=== PATIENT | male | born 1965 | race African-American/Black ===

== ENCOUNTER 2021-03-05 13:39 | Inpatient (IN) | payer MEDICAID, OTHER ==
[~2021-03-05] VITALS: Ht 172.7 cm; Wt 68.0 kg
[2021-03-05] MEDS ORDERED: PANTOPRAZOLE SODIUM 40 MG/VIAL IV STA (14:06)
[2021-03-05] MEDS ORDERED: PANTOPRAZOLE 80 MG in SODIUM CHLORIDE 0.9% 100 ML IV STA (14:06)
[2021-03-05] MEDS ORDERED: SODIUM CHLORIDE 0.9% 1,000 ML IV ONE (14:15)
[2021-03-05 14:41] LABS: CHLORIDE 101 mEq/L (98-107); HEMOGLOBIN. 13.1 g/dL (14.0-18.0); MEAN CORPUSCULAR VOLUME 81.4 fL (80.0-94.0); MEAN PLATELET VOLUME 7.8 fl (7.4-10.4); PLATELET 336 x1000/uL (130-400); RED BLOOD CELL COUNT 5.03 mill/uL (4.7-6.1); RED CELL DISTRIBUTION WIDTH 16.9 % (11.6-14.6)
[2021-03-05 14:45] LABS: INR 1.1; PARTIAL THROMBOPLASTIN TIME 26.1 sec (23.4-31.0); PROTHROMBIN TIME 11.4 sec (9.6-11.0)
[2021-03-05] MEDS ORDERED: PIPERACILLIN/TAZ 3.375G PREMIX 50 ML IV ONE (15:00)
[2021-03-05] MEDS ORDERED: VANCOMYCIN 1 G PREMIX 200 ML IV ONE (15:00)
[2021-03-05 15:53] LABS: PLATELET ESTIMATE NORMAL
[2021-03-05] MEDS ORDERED: ALBUTEROL (0.083%) 2.5MG/3ML NEB HHN ONE (17:00)
[2021-03-05] MEDS ORDERED: SODIUM BICARBONATE 8.4% 1 MEQ/ML 50ML SYR IV ONE (17:00)
[2021-03-06 01:18] LABS: CLARITY URINE CLOUDY (CLEAR); COLOR URINE DARK YELLOW (YELLOW); KETONES URINE TRACE (NEGATIVE); LEUKOCYTE ESTERASE URINE NEGATIVE (NEGATIVE); NITRITE URINE NEGATIVE (NEGATIVE); OCCULT BLOOD URINE NEGATIVE (NEGATIVE); PROTEIN URINE TRACE (NEGATIVE); SPECIFIC GRAVITY URINE 1.018 (1.005-1.030)
[2021-03-06 06:42] VITALS: BP 102/75
[2021-03-06 08:00] VITALS: BP 90/64
[2021-03-06] MEDS ORDERED: IPRATROPIUM/ALBUTEROL 0.5-3(2.5)MG/3ML NEB HHN PRN (08:45)
[2021-03-06] MEDS ORDERED: CLONIDINE 0.1MG TABLET PO PRN (08:45)
[2021-03-06] MEDS ORDERED: MORPHINE SULFATE 2 MG/ML CPJ (NOT FOR IM USE) IV PRN (08:45)
[2021-03-06] MEDS ORDERED: DIPHENHYDRAMINE 50MG/ML VIAL IV PRN (08:45)
[2021-03-06] MEDS ORDERED: NALOXONE HCL 0.4MG/ML VIAL IV PRN (08:45)
[2021-03-06] MEDS ORDERED: ONDA4TAB5 PO (08:48)
[2021-03-06] MEDS ORDERED: SPIR100T5 PO (08:48)
[2021-03-06] MEDS ORDERED: BACL20TA PO (08:48)
[2021-03-06] MEDS ORDERED: LEVE500T19 PO (08:48)
[2021-03-06] MEDS ORDERED: DEXA4TAB PO (08:48)
[2021-03-06] MEDS ORDERED: FURO20TA4 PO (08:48)
[2021-03-06] MEDS: SODIUM CHLORIDE 0.9% 1,000 ML IV SCH (10:30)
[2021-03-06] MEDS: PANTOPRAZOLE SODIUM 40 MG/VIAL IV SCH (10:30)
[2021-03-06] MEDS ORDERED: PIPERACILLIN/TAZOBACTAM 3.375 G in DEXTROSE 5% WATER 50 ML IV NR (10:30)
[2021-03-06 10:34] LABS: HEMATOCRIT. 37.5 % (42.0-52.0); HEMOGLOBIN. 12.1 g/dL (14.0-18.0); MEAN CORPUSCULAR HEMOGLOBIN 26.3 pg (28.0-32.0); MEAN CORPUSCULAR VOLUME 81.3 fL (80.0-94.0); MEAN PLATELET VOLUME 8.5 fl (7.4-10.4); PLATELET 289 x1000/uL (130-400); RED BLOOD CELL COUNT 4.61 mill/uL (4.7-6.1)
[2021-03-06] MEDS ORDERED: VANCOMYCIN 500 MG PREMIX 100 ML IV NR (12:00)
[2021-03-06] MEDS: PIPERACILLIN/TAZOBACTAM 3.375 G in DEXTROSE 5% WATER 50 ML IV SCH ×2 (13:28→21:19)
[2021-03-06 16:00] VITALS: BP 108/80
[2021-03-06 18:12] LABS: PLATELET ESTIMATE NORMAL
[2021-03-06 20:00] VITALS: BP 101/75
[2021-03-07] VITALS: BP 99/68
[2021-03-07] MEDS: SODIUM CHLORIDE 0.9% 1,000 ML IV SCH ×3 (03:27→19:56)
[2021-03-07 04:00] VITALS: BP 110/70
[2021-03-07] MEDS: PIPERACILLIN/TAZOBACTAM 3.375 G in DEXTROSE 5% WATER 50 ML IV SCH (05:40)
[2021-03-07 07:25] LABS: HEMATOCRIT. 33.3 % (42.0-52.0); HEMOGLOBIN. 10.8 g/dL (14.0-18.0); MEAN CORPUSCULAR HEMOGLOBIN 26.5 pg (28.0-32.0); MEAN CORPUSCULAR VOLUME 81.4 fL (80.0-94.0); PLATELET 299 x1000/uL (130-400); RED BLOOD CELL COUNT 4.09 mill/uL (4.7-6.1); RED CELL DISTRIBUTION WIDTH 17.1 % (11.6-14.6)
[2021-03-07 07:33] LABS: PROTHROMBIN TIME 10.9 sec (9.6-11.0)
[2021-03-07 07:41] LABS: CHLORIDE 109 mEq/L (98-107)
[2021-03-07 07:50] LABS: PHOSPHORUS 3.8 mg/dL (2.5-4.9)
[2021-03-07 07:51] LABS: LDL CHOLESTEROL 54 mg/dL (5-100); TOTAL IRON BINDING CAPACITY 172 ug/dL (250-450)
[2021-03-07 07:53] LABS: HDL CHOLESTEROL 49 mg/dL (40-59)
[2021-03-07 08:00] VITALS: BP 94/66
[2021-03-07 08:12] LABS: VITAMIN B12 SERUM > 2000.0 pg/mL (211-911)
[2021-03-07 08:49] LABS: FERRITIN 638 ng/mL (22-322)
[2021-03-07] MEDS ORDERED: SODIUM BICARBONATE 4% (2.4MEQ) 5ML VIAL IV ONE (08:54)
[2021-03-07] MEDS ORDERED: LIDOCAINE HCL 1% 10 MG/ML 10ML VIAL ONE (08:54)
[2021-03-07 09:00] LABS: HEPATITIS B SURFACE ANTIGEN NEGATIVE
[2021-03-07] MEDS: VANCOMYCIN 1 G PREMIX 200 ML IV SCH (10:37)
[2021-03-07] MEDS: PANTOPRAZOLE SODIUM 40 MG/VIAL IV SCH (10:37)
[2021-03-07 12:00] VITALS: BP 78/52
[2021-03-07] MEDS ORDERED: ALBUMIN HUMAN 12.5GM/50ML (25%) IV ONE (13:00)
[2021-03-07] MEDS: THIAMINE HCL 100MG TABLET PO SCH (14:51)
[2021-03-07] MEDS: MULTIVITAMINS,THER W-MINERALS TABLET PO SCH (14:51)
[2021-03-07] MEDS ORDERED: ALBUMIN HUMAN 25GM/100ML (25%) IV NR (15:00)
[2021-03-07 15:13] LABS: PLATELET ESTIMATE NORMAL
[2021-03-07] MEDS: PIPERACILLIN/TAZOBACTAM 3.375G in DEXT 5% WATER 50ML IV SCH ×2 (15:58→22:25)
[2021-03-07 16:00] VITALS: BP 86/52
[2021-03-07] MEDS ORDERED: SODIUM CHLORIDE 0.9% 500 ML IV ONE (17:30)
[2021-03-07] MEDS: FAMOTIDINE 20MG TABLET PO SCH (18:14)
[2021-03-07 20:00] VITALS: BP 95/57
[2021-03-08] VITALS: BP 97/61
[2021-03-08] MEDS: VANCOMYCIN 1 G PREMIX 200 ML IV SCH (03:44)
[2021-03-08 04:00] VITALS: BP 104/63
[2021-03-08] MEDS: PIPERACILLIN/TAZOBACTAM 3.375G in DEXT 5% WATER 50ML IV SCH (05:40)
[2021-03-08 06:22] LABS: CHLORIDE 105 mEq/L (98-107)
[2021-03-08 06:30] LABS: PHOSPHORUS 2.4 mg/dL (2.5-4.9)
[2021-03-08 06:50] LABS: HEMATOCRIT. 34.1 % (42.0-52.0); HEMOGLOBIN. 11.2 g/dL (14.0-18.0); MEAN CORPUSCULAR HEMOGLOBIN 26.9 pg (28.0-32.0); MEAN CORPUSCULAR VOLUME 81.9 fL (80.0-94.0); MEAN PLATELET VOLUME 8.8 fl (7.4-10.4); PLATELET 277 x1000/uL (130-400); RED BLOOD CELL COUNT 4.16 mill/uL (4.7-6.1); RED CELL DISTRIBUTION WIDTH 17.1 % (11.6-14.6)
[2021-03-08 08:00] VITALS: BP 100/69
[2021-03-08] MEDS ORDERED: VANCOMYCIN 500 MG PREMIX 100 ML IV SCH (08:00)
[2021-03-08] MEDS: THIAMINE HCL 100MG TABLET PO SCH (08:16)
[2021-03-08] MEDS: MULTIVITAMINS,THER W-MINERALS TABLET PO SCH (08:16)
[2021-03-08] MEDS: PANTOPRAZOLE SODIUM 40 MG/VIAL IV SCH (08:16)
[2021-03-08] MEDS: FAMOTIDINE 20MG TABLET PO SCH (08:16)
[2021-03-08 12:00] VITALS: BP 99/68
[2021-03-08] MEDS ORDERED: POTASSIUM PHOS,M-BASIC-D-BASIC 15 MMOL in DEXT 5% WATER 245 ML IV SCH (12:00)
[2021-03-08 12:26] LABS: PLATELET ESTIMATE NORMAL
[2021-03-08] MEDS: SODIUM CHLORIDE 0.9% 1,000 ML IV SCH (14:09)
[2021-03-08] MEDS ORDERED: MAGNESIUM/ALUMINUM HYDROXIDE/SIMETHICONE 30ML UDC PO PRN (15:30)
[2021-03-08 16:00] VITALS: BP 100/71
[2021-03-08] MEDS ORDERED: VANCOMYCIN 750 MG PREMIX 150 ML IV SCH (18:00)
[2021-03-08 20:00] VITALS: BP 90/58
[2021-03-09] VITALS: BP 98/68
[2021-03-09] MEDS: IPRATROPIUM/ALBUTEROL 0.5-3(2.5)MG/3ML NEB HHN SCH ×4 (01:25→15:25)
[2021-03-09 04:00] VITALS: BP 92/61
[2021-03-09 06:42] LABS: CHLORIDE 106 mEq/L (98-107)
[2021-03-09 06:51] LABS: HEMOGLOBIN. 11.9 g/dL (14.0-18.0); MEAN PLATELET VOLUME 8.4 fl (7.4-10.4); PLATELET 250 x1000/uL (130-400); RED CELL DISTRIBUTION WIDTH 17.2 % (11.6-14.6)
[2021-03-09 06:59] LABS: PHOSPHORUS 2.2 mg/dL (2.5-4.9)
[2021-03-09 08:00] VITALS: BP 99/65
[2021-03-09] MEDS: MULTIVITAMINS,THER W-MINERALS TABLET PO SCH (08:25)
[2021-03-09] MEDS: PANTOPRAZOLE SODIUM 40 MG/VIAL IV SCH (08:26)
[2021-03-09] MEDS: FAMOTIDINE 20MG TABLET PO SCH (08:26)
[2021-03-09] MEDS: THIAMINE HCL 100MG TABLET PO SCH (08:26)
[2021-03-09] MEDS ORDERED: MEGESTROL ACETATE 400 MG/10 ML UDC PO SCH (09:00)
[2021-03-09 09:36] LABS: PLATELET ESTIMATE NORMAL
[2021-03-09] MEDS ORDERED: POLYETHYLENE GLYCOL 3350 (17GM) 1 DOSE PACK PO PRN (11:45)
[2021-03-09 12:00] VITALS: BP 100/52
[2021-03-09] MEDS: CEFEPIME 2,000 MG in DEXT 5% WATER 100 ML IV SCH (13:39)
[2021-03-09 16:00] VITALS: BP 102/57
[2021-03-09] MEDS: POTASSIUM-SODIUM PHOSPHATE POWDER PACKET PO SCH (17:04)
[2021-03-09] MEDS: SODIUM CHLORIDE 0.9% 1,000 ML IV SCH (17:05)
[2021-03-09 20:00] VITALS: BP 99/60
[2021-03-10] VITALS: BP 118/70
[2021-03-10 01:43] LABS: BG BASE EXCESS 0.6 mmol/L (-2.0-2.0); BG CARBOXYHEMOGLOBIN 0.2 % (0.5-1.5); BG DEOXYHEMOGLOBIN 9.9 % (0.0-5.0); BG FRACTION INSPIRED OXYGEN 44; BG HCO3 ACT 24.8 mmol/L (22.0-26.0); BG METHEMOGLOBIN 0.4 % (0.0-1.5); BG OXYHEMOGLOBIN 89.5 % (94.0-97.0); BG PCO2 38.5 mmHg (35.0-45.0); BG PH 7.427 (7.350-7.450); BG PO2 57.5 mmHg (75.0-100.0); BG SAMPLE SITE RIGHT RADIAL; BG TOTAL HEMOGLOBIN 12.8 g/dL (12.0-18.0); BG VENT MODE NASAL CANNULA
[2021-03-10] MEDS: CEFEPIME 2,000 MG in DEXT 5% WATER 100 ML IV SCH ×2 (02:31→17:44)
[2021-03-10 04:00] VITALS: BP 100/77
[2021-03-10] MEDS: SODIUM CHLORIDE 0.9% 1,000 ML IV SCH (06:02)
[2021-03-10 07:58] LABS: HEMATOCRIT. 38.3 % (42.0-52.0); HEMOGLOBIN. 11.8 g/dL (14.0-18.0); MEAN CORPUSCULAR HEMOGLOBIN 26.2 pg (28.0-32.0); MEAN CORPUSCULAR VOLUME 85.2 fL (80.0-94.0); PLATELET 232 x1000/uL (130-400); RED CELL DISTRIBUTION WIDTH 17.4 % (11.6-14.6)
[2021-03-10 08:00] VITALS: BP 100/65
[2021-03-10 08:17] LABS: CHLORIDE 106 mEq/L (98-107)
[2021-03-10 08:24] LABS: PHOSPHORUS 2.9 mg/dL (2.5-4.9)
[2021-03-10] MEDS: HYDROCODONE/ACETAMINOPHEN 5/325MG TABLET PO PRN (09:36)
[2021-03-10] MEDS: FAMOTIDINE 20MG TABLET PO SCH (09:53)
[2021-03-10] MEDS: PANTOPRAZOLE SODIUM 40 MG/VIAL IV SCH (09:53)
[2021-03-10] MEDS: MULTIVITAMINS,THER W-MINERALS TABLET PO SCH (09:53)
[2021-03-10] MEDS: POTASSIUM-SODIUM PHOSPHATE POWDER PACKET PO SCH ×2 (09:53→17:44)
[2021-03-10] MEDS: THIAMINE HCL 100MG TABLET PO SCH (09:53)
[2021-03-10 12:00] VITALS: BP 100/70
[2021-03-10 16:00] VITALS: BP 100/70
[2021-03-10 16:06] LABS: PLATELET ESTIMATE NORMAL
[2021-03-10 20:00] VITALS: BP 85/56
[2021-03-11] VITALS (7 sets, daily range): BP systolic 90–101; BP diastolic 60–70
[2021-03-11] MEDS: IPRATROPIUM/ALBUTEROL 0.5-3(2.5)MG/3ML NEB HHN SCH ×2 (00:36→01:12)
[2021-03-11] MEDS: CEFEPIME 2,000 MG in DEXT 5% WATER 100 ML IV SCH ×2 (02:21→13:48)
[2021-03-11] MEDS: SODIUM CHLORIDE 0.9% 1,000 ML IV SCH ×2 (02:21→23:20)
[2021-03-11 07:06] LABS: CHLORIDE 107 mEq/L (98-107)
[2021-03-11 07:26] LABS: HEMATOCRIT. 33.6 % (42.0-52.0); HEMOGLOBIN. 10.7 g/dL (14.0-18.0); MEAN CORPUSCULAR HEMOGLOBIN 26.2 pg (28.0-32.0); MEAN CORPUSCULAR VOLUME 81.8 fL (80.0-94.0); MEAN PLATELET VOLUME 8.5 fl (7.4-10.4); PLATELET 266 x1000/uL (130-400); RED BLOOD CELL COUNT 4.11 mill/uL (4.7-6.1); RED CELL DISTRIBUTION WIDTH 17.6 % (11.6-14.6)
[2021-03-11] MEDS ORDERED: SODIUM BICARBONATE 4% (2.4MEQ) 5ML VIAL IV ONE (08:21)
[2021-03-11] MEDS: THIAMINE HCL 100MG TABLET PO SCH (11:15)
[2021-03-11] MEDS: MULTIVITAMINS,THER W-MINERALS TABLET PO SCH (11:15)
[2021-03-11] MEDS: FAMOTIDINE 20MG TABLET PO SCH (11:15)
[2021-03-11] MEDS: PANTOPRAZOLE SODIUM 40 MG/VIAL IV SCH (11:16)
[2021-03-11] MEDS: POTASSIUM-SODIUM PHOSPHATE POWDER PACKET PO SCH ×2 (11:16→17:29)
[2021-03-11 13:10] LABS: PLATELET ESTIMATE NORMAL
[2021-03-11] MEDS: HYDROCODONE/ACETAMINOPHEN 5/325MG TABLET PO PRN (20:19)
[2021-03-12] MEDS: CEFEPIME 2,000 MG in DEXT 5% WATER 100 ML IV SCH ×2 (01:24→13:01)
[2021-03-12 04:00] VITALS: BP 100/68
[2021-03-12 06:57] LABS: HEMATOCRIT. 36.3 % (42.0-52.0); HEMOGLOBIN. 11.7 g/dL (14.0-18.0); MEAN CORPUSCULAR HEMOGLOBIN 26.7 pg (28.0-32.0); MEAN CORPUSCULAR VOLUME 82.7 fL (80.0-94.0); MEAN PLATELET VOLUME 8.5 fl (7.4-10.4); PLATELET 280 x1000/uL (130-400); RED BLOOD CELL COUNT 4.38 mill/uL (4.7-6.1); RED CELL DISTRIBUTION WIDTH 17.5 % (11.6-14.6)
[2021-03-12 07:01] LABS: CHLORIDE 107 mEq/L (98-107)
[2021-03-12 08:00] VITALS: BP 93/68
[2021-03-12] MEDS: FAMOTIDINE 20MG TABLET PO SCH (09:03)
[2021-03-12] MEDS: PANTOPRAZOLE SODIUM 40 MG/VIAL IV SCH (09:04)
[2021-03-12] MEDS: THIAMINE HCL 100MG TABLET PO SCH (09:04)
[2021-03-12] MEDS: POTASSIUM-SODIUM PHOSPHATE POWDER PACKET PO SCH ×2 (09:04→17:13)
[2021-03-12] MEDS: MULTIVITAMINS,THER W-MINERALS TABLET PO SCH (09:04)
[2021-03-12] MEDS: IPRATROPIUM/ALBUTEROL 0.5-3(2.5)MG/3ML NEB HHN SCH ×2 (10:12→17:52)
[2021-03-12 12:00] VITALS: BP 93/62
[2021-03-12] MEDS: GUAIFENESIN 600MG ER TABLET PO SCH ×2 (12:59→22:09)
[2021-03-12] MEDS: ACETYLCYSTEINE 100MG/ML 10% VIAL 4ML INH SCH ×2 (13:01→17:50)
[2021-03-12 15:50] LABS: PLATELET ESTIMATE NORMAL
[2021-03-12 16:00] VITALS: BP 96/69
[2021-03-12] MEDS: SODIUM CHLORIDE 0.9% 1,000 ML IV SCH (17:13)
[2021-03-12 20:00] VITALS: BP 97/71
[2021-03-13] VITALS: BP 93/69
[2021-03-13] MEDS: IPRATROPIUM/ALBUTEROL 0.5-3(2.5)MG/3ML NEB HHN SCH ×3 (01:19→21:10)
[2021-03-13] MEDS: ACETYLCYSTEINE 100MG/ML 10% VIAL 4ML INH SCH ×2 (01:19→21:10)
[2021-03-13] MEDS: CEFEPIME 2,000 MG in DEXT 5% WATER 100 ML IV SCH ×2 (01:26→14:58)
[2021-03-13] MEDS: SODIUM CHLORIDE 0.9% 1,000 ML IV SCH (01:28)
[2021-03-13 04:00] VITALS: BP 99/69
[2021-03-13 06:00] LABS: CHLORIDE 108 mEq/L (98-107)
[2021-03-13 06:19] LABS: HEMATOCRIT. 34.8 % (42.0-52.0); HEMOGLOBIN. 11.2 g/dL (14.0-18.0); MEAN CORPUSCULAR HEMOGLOBIN 26.3 pg (28.0-32.0); MEAN CORPUSCULAR VOLUME 81.8 fL (80.0-94.0); MEAN PLATELET VOLUME 8.2 fl (7.4-10.4); PLATELET 297 x1000/uL (130-400); RED BLOOD CELL COUNT 4.25 mill/uL (4.7-6.1); RED CELL DISTRIBUTION WIDTH 17.2 % (11.6-14.6)
[2021-03-13 08:00] VITALS: BP 94/65
[2021-03-13] MEDS: POTASSIUM-SODIUM PHOSPHATE POWDER PACKET PO SCH ×2 (09:51→17:45)
[2021-03-13] MEDS: ACETAMINOPHEN 325MG TABLET PO PRN (09:51)
[2021-03-13] MEDS: PANTOPRAZOLE SODIUM 40 MG/VIAL IV SCH (09:51)
[2021-03-13] MEDS: THIAMINE HCL 100MG TABLET PO SCH (09:51)
[2021-03-13] MEDS: GUAIFENESIN 600MG ER TABLET PO SCH ×2 (09:51→20:26)
[2021-03-13] MEDS: MULTIVITAMINS,THER W-MINERALS TABLET PO SCH (09:51)
[2021-03-13] MEDS: FAMOTIDINE 20MG TABLET PO SCH (09:53)
[2021-03-13 09:58] LABS: PLATELET ESTIMATE NORMAL
[2021-03-13 12:00] VITALS: BP 100/71
[2021-03-13] MEDS: THROAT LOZENGES-BENZOCAINE/MENTH/CETYLPYRD CL LOZENGES MM PRN (12:54)
[2021-03-13] MEDS: FUROSEMIDE 20MG/2ML VIAL IVP SCH (14:58)
[2021-03-13 16:00] VITALS: BP 106/70
[2021-03-13 20:00] VITALS: BP 95/70
[2021-03-14] VITALS: BP 105/74
[2021-03-14] MEDS: CEFEPIME 2,000 MG in DEXT 5% WATER 100 ML IV SCH ×2 (03:51→15:23)
[2021-03-14 04:00] VITALS: BP 103/72
[2021-03-14 08:00] VITALS: BP 106/80
[2021-03-14 08:01] LABS: BASOPHILS % 0.5 % (0.0-2.0); EOSINOPHILS % 5.4 % (0.0-5.0); HEMATOCRIT. 38.4 % (42.0-52.0); HEMOGLOBIN. 12.1 g/dL (14.0-18.0); LYMPHOCYTES % 7.6 % (20.0-50.0); MEAN CORPUSCULAR HEMOGLOBIN 26.2 pg (28.0-32.0); MEAN CORPUSCULAR VOLUME 83.4 fL (80.0-94.0); MEAN PLATELET VOLUME 8.1 fl (7.4-10.4); NEUTROPHILS % 79.5 % (40.0-76.0); PLATELET 329 x1000/uL (130-400); RED CELL DISTRIBUTION WIDTH 17.2 % (11.6-14.6)
[2021-03-14 08:04] LABS: PROTHROMBIN TIME 10.8 sec (9.6-11.0)
[2021-03-14 08:14] LABS: CHLORIDE 106 mEq/L (98-107)
[2021-03-14] MEDS: IPRATROPIUM/ALBUTEROL 0.5-3(2.5)MG/3ML NEB HHN SCH ×2 (08:19→16:40)
[2021-03-14] MEDS: ACETYLCYSTEINE 100MG/ML 10% VIAL 4ML INH SCH ×2 (08:19→16:40)
[2021-03-14] MEDS: POTASSIUM-SODIUM PHOSPHATE POWDER PACKET PO SCH ×2 (08:43→17:25)
[2021-03-14] MEDS: PANTOPRAZOLE SODIUM 40 MG/VIAL IV SCH (08:43)
[2021-03-14] MEDS: FUROSEMIDE 20MG/2ML VIAL IVP SCH (08:43)
[2021-03-14] MEDS: MULTIVITAMINS,THER W-MINERALS TABLET PO SCH (08:43)
[2021-03-14] MEDS: FAMOTIDINE 20MG TABLET PO SCH (08:43)
[2021-03-14] MEDS: THIAMINE HCL 100MG TABLET PO SCH (08:44)
[2021-03-14] MEDS: GUAIFENESIN 600MG ER TABLET PO SCH ×2 (08:47→20:43)
[2021-03-14] MEDS: SODIUM CHLORIDE 0.9% 1,000 ML IV SCH (08:48)
[2021-03-14] MEDS ORDERED: SODIUM BICARBONATE 4% (2.4MEQ) 5ML VIAL IV ONE (09:18)
[2021-03-14] MEDS ORDERED: LIDOCAINE HCL 1% 10 MG/ML 10ML VIAL ONE (09:18)
[2021-03-14 12:00] VITALS: BP 99/74
[2021-03-14 16:00] VITALS: BP 103/76
[2021-03-14 20:00] VITALS: BP 100/69
[2021-03-14] MEDS: ACETAMINOPHEN 325MG TABLET PO PRN (20:43)
[2021-03-15] VITALS: BP 101/70
[2021-03-15] MEDS: IPRATROPIUM/ALBUTEROL 0.5-3(2.5)MG/3ML NEB HHN SCH ×3 (00:12→14:46)
[2021-03-15] MEDS: ACETYLCYSTEINE 100MG/ML 10% VIAL 4ML INH SCH ×4 (00:13→14:48)
[2021-03-15 04:00] VITALS: BP 102/70
[2021-03-15 08:00] VITALS: BP 91/69
[2021-03-15 08:31] LABS: BASOPHILS % 0.4 % (0.0-2.0); EOSINOPHILS % 4.2 % (0.0-5.0); HEMOGLOBIN. 12.5 g/dL (14.0-18.0); LYMPHOCYTES % 7.2 % (20.0-50.0); MEAN CORPUSCULAR HEMOGLOBIN 26.5 pg (28.0-32.0); MEAN CORPUSCULAR VOLUME 83.1 fL (80.0-94.0); MEAN PLATELET VOLUME 8.4 fl (7.4-10.4); MONOCYTES % 6.5 % (2.0-8.0); NEUTROPHILS % 81.7 % (40.0-76.0); PLATELET 333 x1000/uL (130-400); RED CELL DISTRIBUTION WIDTH 17.2 % (11.6-14.6)
[2021-03-15] MEDS: FUROSEMIDE 20MG/2ML VIAL IVP SCH (09:00)
[2021-03-15 09:17] LABS: CHLORIDE 106 mEq/L (98-107)
[2021-03-15] MEDS: FAMOTIDINE 20MG TABLET PO SCH (10:12)
[2021-03-15] MEDS: POTASSIUM-SODIUM PHOSPHATE POWDER PACKET PO SCH ×2 (10:12→17:16)
[2021-03-15] MEDS: MULTIVITAMINS,THER W-MINERALS TABLET PO SCH (10:12)
[2021-03-15] MEDS: THIAMINE HCL 100MG TABLET PO SCH (10:12)
[2021-03-15] MEDS: PANTOPRAZOLE SODIUM 40 MG/VIAL IV SCH (10:13)
[2021-03-15 12:00] VITALS: BP 111/79
[2021-03-15] MEDS: GUAIFENESIN 600MG ER TABLET PO SCH ×3 (14:13→21:00)
[2021-03-15 16:00] VITALS: BP 103/72
[2021-03-15] MEDS: ONDANSETRON HCL 4MG/2ML INJ IV PRN (16:07)
[2021-03-15 20:00] VITALS: BP 104/78
[2021-03-15] MEDS: ACETAMINOPHEN 325MG TABLET PO PRN (20:19)
[2021-03-16] VITALS: BP 113/80
[2021-03-16] MEDS: IPRATROPIUM/ALBUTEROL 0.5-3(2.5)MG/3ML NEB HHN SCH ×4 (00:50→22:00)
[2021-03-16] MEDS: ACETYLCYSTEINE 100MG/ML 10% VIAL 4ML INH SCH ×3 (00:51→13:15)
[2021-03-16 04:00] VITALS: BP 109/78
[2021-03-16 08:00] VITALS: BP 100/74
[2021-03-16] MEDS: FUROSEMIDE 20MG/2ML VIAL IVP SCH ×2 (09:00→09:17)
[2021-03-16] MEDS: MULTIVITAMINS,THER W-MINERALS TABLET PO SCH (09:00)
[2021-03-16] MEDS: FAMOTIDINE 20MG TABLET PO SCH (09:00)
[2021-03-16] MEDS: GUAIFENESIN 600MG ER TABLET PO SCH ×2 (09:00→22:01)
[2021-03-16] MEDS: THIAMINE HCL 100MG TABLET PO SCH (09:00)
[2021-03-16] MEDS: PANTOPRAZOLE SODIUM 40 MG/VIAL IV SCH (09:17)
[2021-03-16] MEDS: POTASSIUM-SODIUM PHOSPHATE POWDER PACKET PO SCH ×2 (09:17→18:30)
[2021-03-16 12:00] VITALS: BP 125/77
[2021-03-16] MEDS: ONDANSETRON HCL 4MG/2ML INJ IV PRN (13:44)
[2021-03-16] MEDS: THROAT LOZENGES-BENZOCAINE/MENTH/CETYLPYRD CL LOZENGES MM PRN (14:02)
[2021-03-16 16:00] VITALS: BP 112/75
[2021-03-16] MEDS ORDERED: HYDROCODONE/ACETAMINOPHEN 5/325MG TABLET PO PRN (18:15)
[2021-03-16 20:00] VITALS: BP 93/63
[2021-03-17] VITALS: BP 115/80
[2021-03-17 04:00] VITALS: BP 108/74
[2021-03-17] MEDS: ACETYLCYSTEINE 100MG/ML 10% VIAL 4ML INH SCH ×2 (07:34→15:50)
[2021-03-17] MEDS: IPRATROPIUM/ALBUTEROL 0.5-3(2.5)MG/3ML NEB HHN SCH ×2 (07:34→15:50)
[2021-03-17 08:00] VITALS: BP 106/71
[2021-03-17] MEDS: POTASSIUM-SODIUM PHOSPHATE POWDER PACKET PO SCH ×2 (09:13→17:00)
[2021-03-17] MEDS: PANTOPRAZOLE SODIUM 40 MG/VIAL IV SCH (09:13)
[2021-03-17] MEDS: GUAIFENESIN 600MG ER TABLET PO SCH ×2 (09:14→21:22)
[2021-03-17] MEDS: FAMOTIDINE 20MG TABLET PO SCH (09:14)
[2021-03-17] MEDS: THIAMINE HCL 100MG TABLET PO SCH (09:14)
[2021-03-17] MEDS: FUROSEMIDE 20MG/2ML VIAL IVP SCH (09:14)
[2021-03-17] MEDS: MULTIVITAMINS,THER W-MINERALS TABLET PO SCH (09:14)
[2021-03-17 12:00] VITALS: BP 100/63
[2021-03-17 16:00] VITALS: BP 100/66
[2021-03-17 20:00] VITALS: BP 110/74
[2021-03-18] VITALS: BP 99/67
[2021-03-18] MEDS: IPRATROPIUM/ALBUTEROL 0.5-3(2.5)MG/3ML NEB HHN SCH ×3 (00:22→14:00)
[2021-03-18 04:00] VITALS: BP 103/72
[2021-03-18 08:00] VITALS: BP 94/65
[2021-03-18] MEDS: PANTOPRAZOLE SODIUM 40 MG/VIAL IV SCH (09:46)
[2021-03-18] MEDS: FAMOTIDINE 20MG TABLET PO SCH (09:46)
[2021-03-18] MEDS: POTASSIUM-SODIUM PHOSPHATE POWDER PACKET PO SCH ×2 (09:46→17:39)
[2021-03-18] MEDS: THIAMINE HCL 100MG TABLET PO SCH (09:46)
[2021-03-18] MEDS: MULTIVITAMINS,THER W-MINERALS TABLET PO SCH (09:46)
[2021-03-18] MEDS: GUAIFENESIN 600MG ER TABLET PO SCH ×2 (09:46→22:21)
[2021-03-18] MEDS: FUROSEMIDE 20MG/2ML VIAL IVP SCH (09:46)
[2021-03-18 12:00] VITALS: BP 98/55
[2021-03-18 16:00] VITALS: BP 82/55
[2021-03-18] MEDS ORDERED: SODIUM CHLORIDE 0.9% 1000ML BAG (SEPSIS BOLUS) IV NR (17:15)
[2021-03-18] MEDS ORDERED: ALBUMIN HUMAN 12.5GM/50ML (25%) IV ONE (17:15)
[2021-03-18] MEDS ORDERED: ALBUMIN HUMAN 25GM/100ML (25%) IV NR (18:30)
[2021-03-18 20:00] VITALS: BP 94/63
[2021-03-19] VITALS: BP 93/63
[2021-03-19] MEDS: IPRATROPIUM/ALBUTEROL 0.5-3(2.5)MG/3ML NEB HHN SCH (01:22)
[2021-03-19 04:00] VITALS: BP 100/64
[2021-03-19] MEDS: PANTOPRAZOLE SODIUM 40 MG/VIAL IV SCH (09:08)
[2021-03-19] MEDS: MULTIVITAMINS,THER W-MINERALS TABLET PO SCH (09:09)
[2021-03-19] MEDS: THIAMINE HCL 100MG TABLET PO SCH (09:09)
[2021-03-19] MEDS: FAMOTIDINE 20MG TABLET PO SCH (09:09)
[2021-03-19] MEDS: POTASSIUM-SODIUM PHOSPHATE POWDER PACKET PO SCH ×2 (09:09→17:49)
[2021-03-19] MEDS: GUAIFENESIN 600MG ER TABLET PO SCH ×2 (09:09→20:26)
[2021-03-19 12:00] VITALS: BP 97/66
[2021-03-19 14:07] VITALS: BP_SYST 102; BP_SYST 97; BP_DIAS 66; BP_DIAS 72
[2021-03-19 16:00] VITALS: BP 94/61
[2021-03-19 20:00] VITALS: BP 97/68
[2021-03-20] VITALS: BP 109/83
[2021-03-20 04:00] VITALS: BP 103/73
== END 2021-03-20 08:00 | disposition hospice, home (50) | DRG 720 ==
LOC: ER 14:08 → 7WST 18:11 → EDBEDREQSVC 18:17 → EDBEDREQTM 18:17 → EDBEDREQ 18:17 → CANRESERV 03-06 01:38 → ENRESERV 03-06 01:38 → 8WST 03-06 08:51
PROVIDERS: ADMIT Internal Medicine; ATTEND Internal Medicine
PROC: 0W9G3ZZ Drainage of Peritoneal Cavity, Percutaneous Approach (ICD-10-PCS; principal; 2021-03-07)
PROC: 0W9B3ZZ Drainage of Left Pleural Cavity, Percutaneous Approach (ICD-10-PCS; 2021-03-11)
PROC: 0W9G3ZZ Drainage of Peritoneal Cavity, Percutaneous Approach (ICD-10-PCS; 2021-03-14)
DX: A41.9 Sepsis, unspecified organism (principal); J96.01 Acute respiratory failure with hypoxia; N17.0 Acute kidney failure with tubular necrosis; C79.51 Secondary malignant neoplasm of bone; E44.0 Moderate protein-calorie malnutrition; E87.2 Acidosis; I82.412 Acute embolism and thrombosis of left femoral vein; J18.9 Pneumonia, unspecified organism; E83.39 Other disorders of phosphorus metabolism; J90 Pleural effusion, not elsewhere classified; C34.90 Malignant neoplasm of unspecified part of unspecified bronchus or lung; C78.6 Secondary malignant neoplasm of retroperitoneum and peritoneum; C78.7 Secondary malignant neoplasm of liver and intrahepatic bile duct; D64.9 Anemia, unspecified; E87.5 Hyperkalemia; K92.2 Gastrointestinal hemorrhage, unspecified; R18.8 Other ascites; R65.20 Severe sepsis without septic shock; Z20.822 Contact with and (suspected) exposure to COVID-19; Z66 Do not resuscitate; Z85.118 Personal history of other malignant neoplasm of bronchus and lung; Z68.22 Body mass index [BMI] 22.0-22.9, adult; Z79.899 Other long term (current) drug therapy
CPT/HCPCS: 32555; 36415; 36600; 49083; 71045; 74176; 76604; 76700; 80048; 80053; 80061; 80076; 80202; 81003; 82040; 82248; 82270; 82375; 82607; 82728; 82746; 82805; 83540; 83550; 83605; 83735; 83880; 84100; 84145; 84443; 84484; 85025; 85044; 86705; 86709; 86803; 86850; 86900; 87340; 87426; 88108; 88312; 93005; 93970; 94640; 97110; 97116; 97161; 97530; 99291; C1893; C9113; J0692; J1940; J2405; J2543; J3370; J3490; J7030; J7040; J7050; J7060; J7608; P9047; U0003; U0005